=== PATIENT | female | born 1975 | race Caucasian/White ===

== ENCOUNTER → 2023-04-23 08:28 | Outpatient (REF) | payer BC, SELFPAY ==
[2023-04-27 06:31] LABS: Bacterial Vaginosis by TMA Positive; Candida glabrata by TMA Negative; Candida species by TMA Positive; Trichomonas vaginalis by TMA Negative
== END ==
LOC: CLAB 08:28
PROVIDERS: ATTENDING PHYSICIAN Nurse Practitioner Family
DX: N76.0 Acute vaginitis (principal); Z01.419 Encounter for gynecological examination (general) (routine) without abnormal findings; Z12.4 Encounter for screening for malignant neoplasm of cervix; Z11.51 Encounter for screening for human papillomavirus (HPV)
CPT/HCPCS: 81513; 87481; 87624; 87661; G0123

== ENCOUNTER → 2023-07-20 07:58 | Outpatient (REF) | payer BC, SELFPAY | LOC: HWWDC 07:58 | PROVIDERS: ATTENDING PHYSICIAN Nurse Practitioner Family; FAMILY PHYSICIAN Internal Medicine | DX: Z12.31 Encounter for screening mammogram for malignant neoplasm of breast (principal) | CPT/HCPCS: 77063; 77067 ==

== ENCOUNTER → 2023-08-31 07:40 | Outpatient (REF) | payer BC, SELFPAY | LOC: CLAB 07:40 | PROVIDERS: ATTENDING PHYSICIAN Obstetrics & Gynecology Gynecology | DX: N76.0 Acute vaginitis (principal) | CPT/HCPCS: 87070; 87077; 87102; 87147 ==

== ENCOUNTER → 2023-10-03 17:38 | Outpatient (REF) | payer BC, SELFPAY | LOC: CLAB 17:38 | PROVIDERS: ATTENDING PHYSICIAN Obstetrics & Gynecology Gynecology | DX: N76.0 Acute vaginitis (principal) | CPT/HCPCS: 87070; 87077; 87102; 87106; 87147 ==

== ENCOUNTER → 2024-01-14 07:33 | Outpatient (REF) | payer BC, SELFPAY | LOC: CPAP 07:33 | PROVIDERS: ATTENDING PHYSICIAN Obstetrics & Gynecology Gynecology | DX: B37.9 Candidiasis, unspecified (principal) | CPT/HCPCS: 87102 ==

== ENCOUNTER → 2024-02-15 07:32 | Outpatient (REF) | payer BC, SELFPAY | LOC: RAD 07:32 | PROVIDERS: FAMILY PHYSICIAN Internal Medicine | DX: M79.89 Other specified soft tissue disorders (principal) | CPT/HCPCS: 93970 ==

== ENCOUNTER → 2024-04-25 18:34 | Outpatient (REF) | payer BC, SELFPAY | LOC: CLAB 18:34 | PROVIDERS: ATTENDING PHYSICIAN Obstetrics & Gynecology Gynecology | DX: Z01.419 Encounter for gynecological examination (general) (routine) without abnormal findings (principal); N87.9 Dysplasia of cervix uteri, unspecified; B37.9 Candidiasis, unspecified | CPT/HCPCS: 87102 ==

== ENCOUNTER → 2024-06-27 14:19 | Outpatient (REF) | payer BC, SELFPAY ==
[2024-06-27 15:22] LABS: Blood Urea Nitrogen 15 mg/dl (7-17); Calcium 10.1 mg/dl (8.4-10.2); Carbon Dioxide 27 mmol/L (22-30); Chloride 106 mmol/L (98-107); Glucose 101 mg/dl (70-99); Potassium 4.9 mmol/L (3.5-5.1); Sodium 140 mmol/L (135-145); eGFR > 60.00
== END ==
LOC: RAD 14:19
PROVIDERS: ATTENDING PHYSICIAN Radiology Diagnostic Radiology; FAMILY PHYSICIAN Internal Medicine; OTHER PHYSICIAN Nurse Practitioner Acute Care; REFERRING PHYSICIAN Internal Medicine
DX: I87.2 Venous insufficiency (chronic) (peripheral) (principal); Z01.818 Encounter for other preprocedural examination
CPT/HCPCS: 36415; 74174; 80048; Q9967

== ENCOUNTER → 2024-07-21 07:33 | Outpatient (REF) | payer BC, SELFPAY | LOC: HWWDC 07:33 | PROVIDERS: ATTENDING PHYSICIAN Obstetrics & Gynecology Gynecology; FAMILY PHYSICIAN Internal Medicine | DX: Z12.31 Encounter for screening mammogram for malignant neoplasm of breast (principal) | CPT/HCPCS: 77063; 77067 ==

== ENCOUNTER → 2024-07-30 08:52 | Outpatient (REF) | payer BC, SELFPAY | LOC: WDC 08:52 | PROVIDERS: ATTENDING PHYSICIAN Obstetrics & Gynecology Gynecology; FAMILY PHYSICIAN Internal Medicine | DX: R92.8 Other abnormal and inconclusive findings on diagnostic imaging of breast (principal) | CPT/HCPCS: 76642 ==

== ENCOUNTER → 2024-10-24 16:28 | Outpatient (REF) | payer BC, SELFPAY | LOC: RAD 16:28 | PROVIDERS: ATTENDING PHYSICIAN Obstetrics & Gynecology Gynecology; FAMILY PHYSICIAN Internal Medicine | DX: N93.9 Abnormal uterine and vaginal bleeding, unspecified (principal) | CPT/HCPCS: 76830; 76856 ==